=== PATIENT | female | born 2000 | race Caucasian/White ===

== ENCOUNTER 2021-10-14 14:50 | Inpatient (IN) | payer OTHER ==
[~2021-10-14] VITALS: Ht 167.6 cm; Wt 67.4 kg
--- NOTE | 2021-10-18 21:25 | NUR ---
G1L0. 37.1. Ambulatory to LDR 6 with spouse for scheduled cytotec induction. Clean gown on. EFM and TOCO explained and applied. Pt denies contractions, leaking of fluids or vaginal bleeding. Pt reports good movement. Cytotec plan of care explained and questions answered. VS taken. 2144: IV started and labs via IV site. LR bolus infusing without difficulty. 2207: SVE completed. Cytotec explained and placed at this time. Pt repositioned to right lateral position. Call light within reach.
[2021-10-18] MEDS ORDERED: PRENATAL MVI PO (21:55)
[2021-10-18 22:00] VITALS: BP 123/67; PULSE 73; TEMP 98.1
--- NOTE | 2021-10-18 22:13 | NUR ---
Pt's spouse came out to nurses station stating she was bleeding. This RN to assess and renetta red blood noted to inner thighs and perineum. Pericare provided. Educated pt and spouse on plan of care. 2300: Bleeding evaluated at this time. No additional blood noted. 2319: called and updated on pts status. See physican notification. 2346: Pt off monitors to void. No blood noted with urinating.
[2021-10-18 22:30] VITALS: BP 140/75; PULSE 72
[2021-10-18 23:00] VITALS: BP 137/84; PULSE 64
[2021-10-18 23:21] LABS: BASO % 0.2 % (0.0-2.0); EOS # 0.1 K/mm3 (0.0-0.7); GRAN # 6.9 K/mm3 (1.4-6.5); GRAN % 73.3 % (42.2-75.2); HEMATOCRIT 35.9 % (37.0-47.0); HEMOGLOBIN 12.6 g/dl (12.5-16.0); LYMPH # 1.5 K/mm3 (1.2-3.4); LYMPH % 16.1 % (20.0-51.0); MEAN CELL VOLUME 88 fl (80.0-100.0); MEAN CORPUSCULAR HEMOGLOBIN 31 pg (27-31); MEAN CORPUSCULAR HGB CONC 35 g/dl (33.0-37.0); MEAN PLATELET VOLUME 10.6 fl (7.4-10.4); MONO # 0.9 K/mm3 (0.1-0.6); MONO % 9.1 % (1.7-9.3); PLATELET COUNT 218 K/mm3 (130-400); RED BLOOD COUNT 4.07 M/mm3 (4.10-5.30); REDCELL DISTRIBUTION WIDTH-CV 12.8 % (11.5-14.5)
[2021-10-18 23:30] VITALS: BP 125/62; PULSE 62
[2021-10-19] VITALS (46 sets, daily range): BP systolic 97–159; BP diastolic 56–93; PULSE 51–88; TEMP 97.3–98.5
--- NOTE | 2021-10-19 07:45 | NUR ---
Note patient kneeling over birthing ball. Pillow provided for knees for comfort. Continues to c/o back labor. Discussed possibility of cook catheter placement sometime this am. Explanation of purpose of it. Verbalizes understanding.
--- NOTE | 2021-10-19 08:35 | NUR ---
Additional belt wrapped around patient abdomen to support US. Note intermittently picking up suspected maternal heart rate.
--- NOTE | 2021-10-19 09:30 | NUR ---
Requests epidural at this time. LR bolus begun. Chago Garcia CRNA, in-house and notified.
--- NOTE | 2021-10-19 09:37 | NUR ---
0937-Up to BR prior to epidural placement. 0940-Assisted to sitting upright at side of bed in preparation for epidural placment. 0943-TIA Anders, here.
--- NOTE | 2021-10-19 09:50 | NUR ---
0950-Local anesthetic administered by PEOPLE MANAGER. 0951-Epidural space obtained by PEOPLE MANAGER. 0951-Single shot dose administered by PEOPLE MANAGER. 0952-Epidural catheter threaded by PEOPLE MANAGER. Patient tolerates procedure well. Assisted to supine position with left tilt following procedure. No adverse effects noted.
--- NOTE | 2021-10-19 10:18 | NUR ---
Repositioned to left lateral with right leg in stirrup following repeat SVE .
--- NOTE | 2021-10-19 11:00 | NUR ---
Repositioned to right lateral with left leg in stirrup.
--- NOTE | 2021-10-19 11:30 | NUR ---
Rate of pitocin cut in half to 8mU/min after discussing continued tachysystole despite efforts to bump out of pattern.
--- NOTE | 2021-10-19 11:30 | NUR ---
Repositioned supine with left tilt.
--- NOTE | 2021-10-19 12:40 | NUR ---
ure here for evaluation. Repeat SVE /-2. Patient repositioned into knee chest following with BC alvarado
--- NOTE | 2021-10-19 12:45 | NUR ---
reviews monitor strip.
--- NOTE | 2021-10-19 12:51 | NUR ---
C/O feeling rectal pressure.
--- NOTE | 2021-10-19 13:00 | NUR ---
Repositioned to left lateral with peanut ball. [place] repositioned.
--- NOTE | 2021-10-19 13:03 | NUR ---
Pushes PCEA button for c/o sharp pain in rectum. HOB elevated.
--- NOTE | 2021-10-19 13:30 | NUR ---
Repositioned to right lateral with peanut ball.
--- NOTE | 2021-10-19 14:03 | NUR ---
Repositioned to modified welcher's.
--- NOTE | 2021-10-19 14:11 | NUR ---
Repositioned to right lateral with peanut ball. Patient pushes PCEA button again @ this time for c/o increased rectal pressure upon repositioning. Bloody show noted.
--- NOTE | 2021-10-19 14:54 | NUR ---
TIA Engle, here to administer bolus dose via epidural catheter.
--- NOTE | 2021-10-19 15:27 | NUR ---
Patient noticably more controlled with pain of contractions. Verbalizes feeling some relief from epidural bolus, but still breathing through contractions.
--- NOTE | 2021-10-19 15:38 | NUR ---
Repeat SVE, as patient very vocally uncomfortable at this time. C/100/+1. notified, request she come to hospital before beginning pushing efforts, as noted absent variability and repetetive variable decelerations.
--- NOTE | 2021-10-19 15:48 | NUR ---
here. 1550- 200 mL emesis noted. 1556- First push attempt with instruction. 1601- of head, rapidly followed by shoulders by . of female . Infant immediately to maternal abdomen, dried and stimulated by nursery nurse JV Rivera. Cord gases obtained per verbal order. 1606- placenta by . Pit bolus begun @ 333 mU/min immediately following. Verbal order received to send placenta to pathology for analysis with diagnosis of IUGR.
--- NOTE | 2021-10-19 16:10 | NUR ---
Repair of bilateral labial lacerations by with 3-0 Chromic on SH.
[2021-10-20 04:30] VITALS: BP 109/71; PULSE 51; TEMP 98.1
[2021-10-20 07:46] VITALS: BP 124/67; PULSE 66; TEMP 97.9
[2021-10-20] MEDS ORDERED: IBU800 M1 PO (08:31)
--- NOTE | 2021-10-20 09:34 | NUR ---
Initial visit; Parents thanked building energy retrofit technician for visit and offering congratulations and God's blessings for the of their daughter. Wood Borer thanked family for choosing [facility]. Patient stated she has had a very good experience here.
[2021-10-20 16:15] VITALS: BP 123/65; PULSE 58
[2021-10-20 19:20] VITALS: BP 121/60; PULSE 51; TEMP 98
[2021-10-21 04:05] VITALS: BP 122/71; PULSE 61; TEMP 97.8
--- NOTE | 2021-10-21 14:15 | NUR ---
Discussed and reviewed the process of discharge and having pt stay as a boarder with her in the isolette for phototherapy. Pt states "I won't be discharged until my baby is discharged" This RN attempts to educate pt on the boarder process with her staying in the room with her baby, providing care for the baby, able to order meal service for her and her and the only difference would be mom's status as she would no longer be a patient. Pt states again "my and I have decided we won't be discharge until my baby is discharged" and pt appears angry and not willing to discuss. This RN states we can review everything again this evening.
--- NOTE | 2021-10-21 18:45 | NUR ---
DISCUSSED WITH PT AND SPOUSE THE PROCESS OF GOING TO BOARDER STATUS. EDUCATED THAT PT IS ALLOWED TO REMAIN IS CURRENT ROOM FOR THE REMAINER OF HER 'S STAY IN THE HOSPITAL BUT WOULD BE RESPONSIBLE FOR HER MEDICATION MANAGEMENT AND SHE WOULD NO LONGER BE A PATIENT ONCE CHANGING TO THIS STATUS. NOTIFIED THAT MEALS WOULD CONTINUE TO BE PROVIDED FOR HER AND HER SPOUSE AND SHE WOULD BE ABLE TO PROVIDE ALL CARES FOR HER BABY. FOLLOWING THIS DISCUSSION PT AND SPOUSE AGREE TO GO TO BOARDER STATUS AFTER BABY'S NEXT FEEDING.
[2021-10-21 20:03] VITALS: BP 127/78; PULSE 71; TEMP 97.9
--- NOTE | 2021-10-21 21:10 | NUR ---
DISCHARGE INSTRUCTIONS REVIEWED WITH PT. EDUCATED ON LAST TIME MEDICATIONS WERE TAKEN PT WILL CONTINUE THESE ON HER ON WHILE HER BOARDER STATUS. PT VERBALIZED UNDERSTANDING, BRACELETS MATCHED WITH . PT TO BOARDER STATUS AT THIS TIME.
== END 2021-10-21 21:10 | disposition home or self-care (01) | DRG 807 ==
LOC: LDR 10-18 14:50 → OB 10-18 21:10 → LDR 10-18 21:10 → OB 10-19 21:03
PROVIDERS: ADMIT Student in an Organized Health Care Education/Training Program
PROC: 10E0XZZ Delivery of Products of Conception, External Approach (ICD-10-PCS; principal; 2021-10-19)
PROC: 10907ZC Drainage of Amniotic Fluid, Therapeutic from Products of Conception, Via Natural or Artificial Opening (ICD-10-PCS; 2021-10-19)
PROC: 3E0P7VZ Introduction of Hormone into Female Reproductive, Via Natural or Artificial Opening (ICD-10-PCS; 2021-10-19)
PROC: 3E033VJ Introduction of Other Hormone into Peripheral Vein, Percutaneous Approach (ICD-10-PCS; 2021-10-19)
PROC: 0UQMXZZ Repair Vulva, External Approach (ICD-10-PCS; 2021-10-19)
DX: O36.5930 Maternal care for other known or suspected poor fetal growth, third trimester, not applicable or unspecified (principal); Z37.0 Single live birth; O43.123 Velamentous insertion of umbilical cord, third trimester; O75.89 Other specified complications of labor and delivery; M79.7 Fibromyalgia; O76 Abnormality in fetal heart rate and rhythm complicating labor and delivery; O70.0 First degree perineal laceration during delivery; Z3A.37 37 weeks gestation of pregnancy
CPT/HCPCS: J2400; J2590; J2795; J7120

== ENCOUNTER 2023-07-02 19:51 | Inpatient (IN) | payer OTHER ==
[~2023-07-02] VITALS: Ht 167.6 cm; Wt 80.5 kg
[2023-07-02] VITALS (10 sets, daily range): BP systolic 98–134; BP diastolic 54–82; PULSE 70–85; TEMP 98–98.2
[~2023-07-02 19:51] MED LIST: IBU800 M1 PO; PRENATAL MVI PO
--- NOTE | 2023-07-02 20:10 | NUR ---
G3L1 at 40 weeks and 2 days arrives to unit with complaint of contractions every 5 minutes for the last hour. Denies loss of fluid or vaginal bleeding. Reports good movement. Denies problems this . Clean gown on. Oriented to room, bed in low and locked position, call light within reach. US and toco explained and applied. Admission assessment started. Vitals obtained. SVE 4/60/-3, membranes intact. Pt requesting to do intermittent monitoring. Educated pt that we can do that after obtaining a category 1 FHR tracing for 20 minutes.
--- NOTE | 2023-07-02 20:30 | NUR ---
Category 1 FHR tracing obtained. Monitors off for intermittent monitoring.
[2023-07-02] MEDS ORDERED: LR 1,000 ML IV PRN (21:15)
--- NOTE | 2023-07-02 21:20 | NUR ---
Pt in hands and knees upon entering room and breathing through contractions. Pt appears much more uncomfortable. SVE /-3. Reviewing plan of care and pain management with patient. Educated on pain management options. Pt would like to take a couple of minutes to think about options.
--- NOTE | 2023-07-02 21:35 | NUR ---
Pt requesting epidural at this time. Sudheer Holder CRNA notified. 18G IV started in right hand with 1 attempt. Admission labs obtained off IV start. Lactated Ringers bolus infusing to gravity. Consents reviewed with patient and spouse.
[2023-07-02] MEDS ORDERED: ROPIVACAINE 0.2% IV ONE (21:44)
[2023-07-02] MEDS ORDERED: LR 1,000 ML IV SCH (21:45)
[2023-07-02 21:49] LABS: BASO % 0.2 % (0.0-2.0); EOS # 0.1 K/mm3 (0.0-0.7); EOS % 0.6 % (0.0-4.0); GRAN # 7.9 K/mm3 (1.4-6.5); GRAN % 77.6 % (42.2-75.2); HEMOGLOBIN 13.4 g/dl (12.5-16.0); LYMPH # 1.3 K/mm3 (1.2-3.4); LYMPH % 13.1 % (20.0-51.0); MEAN CELL VOLUME 89 fl (80.0-100.0); MEAN CORPUSCULAR HEMOGLOBIN 31 pg (27-31); MEAN CORPUSCULAR HGB CONC 34 g/dl (33.0-37.0); MEAN PLATELET VOLUME 10.4 fl (7.4-10.4); MONO # 0.8 K/mm3 (0.1-0.6); MONO % 8.2 % (1.7-9.3); PLATELET COUNT 213 K/mm3 (130-400); RED BLOOD COUNT 4.39 M/mm3 (4.10-5.30); REDCELL DISTRIBUTION WIDTH-CV 12.5 % (11.5-14.5)
--- NOTE | 2023-07-02 21:54 | NUR ---
2144 - Sudheer Holder CRNA at bedside. Pt positioned to sitting on edge of bed. Epidural procedure, risks, and benefits reviewed with patient, verbalized understanding. 2153 - Test dose by TIA Pulido. Pt denies any adverse reactions. 2199 - Pt positioned to wedge left with pillow support. Bed in low and locked position, call light within reach. Safety precautions reviewed. See anesthesia record.
[2023-07-02] MEDS ORDERED: ROPivacaine PF 0.2% 200 ML IV ONE (22:59)
[2023-07-02] MEDS ORDERED: Naloxone 0.4 MG/ML VIAL IV PRN (23:00)
[2023-07-02] MEDS ORDERED: diphenhydrAMINE 25 MG CAP PO PRN (23:00)
[2023-07-02] MEDS ORDERED: ePHEDrine 50 MG/10 ML VIAL IV PRN (23:00)
[2023-07-02] MEDS ORDERED: diphenhydrAMINE 50 MG/ML 1 ML VIAL IV PRN (23:00)
[2023-07-02] MEDS ORDERED: Ondansetron 4 MG/2 ML VIAL IV PRN (23:00)
--- NOTE | 2023-07-02 23:10 | NUR ---
Alberto placed to dependent drainage. Clear yellow urine out. Secured to leg with statlock. SVE /-1 bulging bag of water.
--- NOTE | 2023-07-02 23:18 | NUR ---
Dr. Ocampo at bedside. SVE at this time with artificial rupture of membranes. Large amount of clear fluid out. SVE /-1.
[2023-07-03] VITALS (12 sets, daily range): BP systolic 109–137; BP diastolic 56–80; PULSE 65–85; TEMP 97.5–98.6
--- NOTE | 2023-07-03 00:03 | NUR ---
2345 - Pt calls out stating that she feels more rectal pressure. SVE complete/+2. 2350 - Dr. Ocampo on unit and updated. Room set up for delivery. Alberto catheter removed, 500 out. Pt positioned into footplates. 2355 - Educated patient on pushing positions and techniques, verbalized understanding. Initial push at this time. 2358 - Pushing well with contractions. Dr. Ocampo and nursery called to bedside 0000 - Dr. Ocampo gowned and gloved at perineum. Nursery RN Hector Louise at bedside. 0003 - Spontaneous vaginal delivery of viable girl. Delayed cord clamping performed per patients request. Cord clamped x [address] Ocampo and cut by FOB after cord stopped pulsating. then placed to mothers abdomen. Care of assumed to JV Guerin. Cord blood obtained. Epidural turned off. 0007 - Spontaneous delivery of intact placenta. Fundal massage by Dr. Ocampo, scant amount of bleeding noted. Perineum intact per Dr. Ocampo. Pitocin started at 333 mL/hr. 0015 - New chux beneath patient. Ice pack to perineum. Pt repositioned in bed for comfort. recovery started. See physician delivery note.
[2023-07-03] MEDS ORDERED: LR & Oxytocin 500 ML IV ONE (00:14)
[2023-07-03] MEDS ORDERED: Loratadine 10 MG TAB PO PRN (00:30)
[2023-07-03] MEDS ORDERED: Magnes Hydrox (MOM) 80 MG/ML 30 ML CUP PO PRN (00:30)
[2023-07-03] MEDS ORDERED: oxyCODONE 5 MG TAB PO PRN (01:45)
[2023-07-03] MEDS ORDERED: Measles/Mumps/Rubella Virus Vaccine Live w Diluent 0.5 ML VIAL SQ SCH (01:45)
[2023-07-03] MEDS ORDERED: Mag/Al Hydrox/Simeth Susp 30 ML CUP PO PRN (01:45)
[2023-07-03] MEDS ORDERED: Phenylephrine/Mineral Oil/Petrolatum 57 GM TUBE RC PRN (01:45)
[2023-07-03] MEDS ORDERED: Ibuprofen 800 MG TAB PO SCH (01:45)
[2023-07-03] MEDS ORDERED: Witch Hazel 50% Pads Bulk TUB TP PRN (01:45)
[2023-07-03] MEDS ORDERED: Acetaminophen 500 MG TAB PO SCH (01:45)
[2023-07-03] MEDS ORDERED: Naloxone 0.4 MG/ML VIAL IV PRN (01:45)
[2023-07-03] MEDS ORDERED: Sennosides/Docusate 8.6-50 MG TAB PO SCH (08:00)
[2023-07-03] MEDS ORDERED: traZODone 50 MG TAB PO PRN (21:00)
[2023-07-04 09:10] VITALS: BP 133/78; PULSE 67; TEMP 97.5
--- NOTE | 2023-07-04 10:00 | NUR ---
Discharge instructions and follow up care reviewed with pt and at the bedside. Both verbalized an understanding, agreed with the plan and states no questions or concerns at this time.
--- NOTE | 2023-07-04 12:46 | NUR ---
Initial visit attempt; Family resting, Zinc Plater left card offering congratulations and God's blessings for the of their daughter and information regarding the availability of Spiritual Care at our Hospital.
== END 2023-07-04 10:15 | disposition home or self-care (01) | DRG 807 ==
LOC: LDRO 19:51 → LDR 21:40 → OB 07-03 00:03
PROVIDERS: Obstetrics & Gynecology; ADMIT Student in an Organized Health Care Education/Training Program
PROC: 10E0XZZ Delivery of Products of Conception, External Approach (ICD-10-PCS; principal; 2023-07-03)
DX: O48.0 Post-term pregnancy (principal); Z37.0 Single live birth; Z3A.40 40 weeks gestation of pregnancy
CPT/HCPCS: J2590; J2795; J7120